=== PATIENT | male | born 1950 | race Caucasian/White ===

== ENCOUNTER 2021-12-27 08:14 | Day surgery (SDC) | payer MEDICARE, SELFPAY ==
[2021-12-21 13:50] VITALS: BMI 31.9
--- NOTE | 2021-12-26 11:48 | P.CONAN_ITS ---
HPI - Anesthesia Eval Consult details Narrative: 71yo M for Upper Endoscopy and Colonoscopy Cardiac visit 09/2021 with bradycardia. 30 day loop ordered. Report requested 12/26/[address] Crawford office ([phone]). [facility]LY [facility] Past Medical History Medical History Arthritis CAD (coronary artery disease) Fibromyalgia GERD (gastroesophageal reflux disease) Glaucoma Hiatal hernia HTN (hypertension) Surgical History Surgical History H/O colonoscopy History of esophagogastroduodenoscopy (EGD) History of trabeculectomy Hx of cataract extraction Hx of cholecystectomy Hx of cystoscopy Hx of hand surgery Hx of hand surgery Hx of transurethral resection of prostate Social History Social History Patient Tobacco Use Status: Current everyday Tobacco user Tobacco use type: Cigar Use of substances other than those prescribed or required for medical reasons: No Are you DNR?: No Advance Directives: No Advance Directives Information Provided: Yes Meds Allergies Allergy/AdvReac Type Severity Reaction Status Date / Time oxycodone [Oxycodone] Allergy Mild ITCHING Verified 12/27/21 08:53 Fbbzgin-LQF-KeI Reductase Allergy Unknown Unknown Verified 12/21/21 13:44 Inhibitor Home Medications Medication Instructions Recorded Confirmed Last Taken Type aspirin 81 mg tablet,delayed 81 mg PO DAILY 12/21/21 12/27/21 12/25/21 History release cholecalciferol (vitamin D3) 25 25 mcg PO DAILY 12/21/21 12/21/21 Unknown History mcg (1,000 unit) capsule (Vitamin D3) duloxetine 30 mg capsule,delayed 1 cap PO DAILY 12/21/21 12/21/21 Unknown History release hydrochlorothiazide 12.5 mg capsule 1 cap PO DAILY 12/21/21 12/21/21 Unknown History latanoprost 0.005 % eye drops 1 drp ophthalmic (eye) BEDTIME 12/21/21 12/21/21 Unknown History lisinopril 40 mg tablet 1 tab PO DAILY 12/21/21 12/21/21 Unknown History magnesium oxide 400 mg PO DAILY 12/21/21 12/21/21 Unknown History metoprolol succinate 25 mg 1 tab PO DAILY 12/21/21 12/21/21 Unknown History tablet,extended release 24 hr verapamil 120 mg tablet,extended 1 tab PO QPM 12/21/21 12/21/21 Unknown History release Exam Exam Date and Time: December 26, 2021 1148 Height,Weight and Vital Signs: Height 5 ft 5 in Weight 87.09 kg Narrative Narrative: EKG 09/2021 SB @ 45 otherwise nml ECHO 2019 LV size is normal LV wall thickness is mildly increased LV systolic function is normal LVEF 60-65% No definite RWMA LV filling pressure are indeterminate LA is mildly to moderately dilated RV is normal in size and function Assessment and Plan Assessment Anesthesia Assessment: Chart Reviewed
[2021-12-27 09:09] VITALS: BMI 31.6
[2021-12-27 09:15] VITALS: BP 154/70; PULSE 56; RESP 16; TEMP 36.6; O2SAT 99
[2021-12-27] MEDS: Lactated Ringers 1,000 ML 100 ML IVCONT (09:19)
--- NOTE | 2021-12-27 09:55 | HO.ANESPROP2 ---
PENDING SALE TO [facility] Past Medical History Medical History Arthritis CAD (coronary artery disease) Fibromyalgia GERD (gastroesophageal reflux disease) Glaucoma Hiatal hernia HTN (hypertension) Family History Family history of problems with anesthesia: No Surgical History Surgical History H/O colonoscopy History of esophagogastroduodenoscopy (EGD) History of trabeculectomy Hx of cataract extraction Hx of cholecystectomy Hx of cystoscopy Hx of hand surgery Hx of hand surgery Hx of transurethral resection of prostate Social History Social History Patient Tobacco Use Status: Current everyday Tobacco user Tobacco use type: Cigar Use of substances other than those prescribed or required for medical reasons: No Are you DNR?: No Advance Directives: No Advance Directives Information Provided: Yes Meds Allergies Allergy/AdvReac Type Severity Reaction Status Date / Time oxycodone [Oxycodone] Allergy Mild ITCHING Verified 12/27/21 08:53 Wvpqkpt-KEX-HwY Reductase Allergy Unknown Unknown Verified 12/21/21 13:44 Inhibitor Active Medications: Current Medications Lactated Ringer's (Lr) 1,000 mls @ 100 mls/hr IVCONT .Q10H JOSE Last Admin: 12/27/21 09:19 Dose: 100 mls/hr Sodium Biphosphate/Sodium Phosphate (Sodium Phosphate,Asotin-Dibasic 133 Ml Enema) 133 ml MS ONCE PRN PRN Reason: Poor Colonoscopy Prep Results Home Medications Medication Instructions Recorded Confirmed Last Taken Type aspirin 81 mg tablet,delayed 81 mg PO DAILY 12/21/21 12/27/21 12/25/21 History release cholecalciferol (vitamin D3) 25 25 mcg PO DAILY 12/21/21 12/21/21 Unknown History mcg (1,000 unit) capsule (Vitamin D3) duloxetine 30 mg capsule,delayed 1 cap PO DAILY 12/21/21 12/21/21 Unknown History release hydrochlorothiazide 12.5 mg capsule 1 cap PO DAILY 12/21/21 12/21/21 Unknown History latanoprost 0.005 % eye drops 1 drp ophthalmic (eye) BEDTIME 12/21/21 12/21/21 Unknown History lisinopril 40 mg tablet 1 tab PO DAILY 12/21/21 12/21/21 Unknown History magnesium oxide 400 mg PO DAILY 12/21/21 12/21/21 Unknown History metoprolol succinate 25 mg 1 tab PO DAILY 12/21/21 12/21/21 Unknown History tablet,extended release 24 hr verapamil 120 mg tablet,extended 1 tab PO QPM 12/21/21 12/21/21 Unknown History release Exam Exam Date and Time: December 27, [id number] Height,Weight and Vital Signs: Height 5 ft 5 in Weight 86.183 kg Last Vital Signs Temp 98 F 12/27/21 09:15 Pulse 56 12/27/21 09:15 Resp 16 12/27/21 09:15 BP 154/70 H 12/27/21 09:15 Pulse Ox 99 12/27/21 09:15 O2 Del Method 12/27/21 09:15 Airway Mallampati Class: I TM Dist: >3cm Neck ROM: Full Loose/Missing/Broken Teeth: No Heart: rrr Lungs: clear Assessment and Plan Final Anesthetic Review Family History of Problems with Anesthesia: No NPO: Yes ASA Class: III Final Preanesthetic Review: No Changes in Pt Med Stat and Meds/Allgs Chart Reviewed Patient Risk: Intermediate Procedure Risk: Low Anesthetic Plan Anesthetic Plan: MAC: Disposition: Standard PACU
[2021-12-27 11:03] VITALS: BP 107/72; PULSE 60; RESP 20; TEMP 37.3; O2SAT 96
--- NOTE | 2021-12-27 11:07 | P.BOP_ITS ---
Brief Operative Note Date of Service: 12/27/21 Pre-op diagnosis: Nino's, Screening Post-op diagnosis: other (Hiatal hernia, reflux esophagitis, Diverticulosis) Procedure: EGD with biopsies, Colonoscopy to the cecum Surgeon: Waldo Bolanos Anesthesia: MAC Was an Public Administration Professor used for this Procedure?: No Estimated blood loss (mL): 2.0 Pathology: other (A. EG Junction at 35cm) Condition: stable Disposition: PACU
[2021-12-27 11:18] VITALS: BP 131/71; PULSE 46; RESP 18; TEMP 36.7; O2SAT 97
--- NOTE | 2021-12-27 13:36 | OP_ITS ---
SURGEON: Waldo Bolanos MD INDICATIONS: The patient presents for evaluation of gastroesophageal reflux and Nino s esophagus, as well as colorectal cancer screening and some constipation. Full consent has been obtained from him for this, including risks of bleeding and perforation. PREOPERATIVE DIAGNOSIS: POSTOPERATIVE DIAGNOSIS: PROCEDURE PERFORMED: Esophagogastroduodenoscopy with biopsies, and colonoscopy to cecum. ESTIMATED BLOOD LOSS: COMPLICATIONS: ANESTHESIA: Monitored anesthesia care. ASSISTANTS: SPECIMENS: PREOPERATIVE DIAGNOSES: Gastroesophageal reflux, Nino's esophagus, constipation, and colorectal cancer screening. POSTOPERATIVE DIAGNOSES: Gastroesophageal reflux, Nino's esophagus, constipation, and colorectal cancer screening, hiatal hernia, reflux esophagitis, diverticulosis, and internal hemorrhoids. DESCRIPTION OF PROCEDURE: The patient was placed in the left lateral decubitus position. The Olympus video gastroscope was passed in the posterior oropharynx and upper esophagus under direct vision. The scope was passed slowly into the distal esophagus. The gastroesophageal junction appeared at 35 cm. This area was notable for some reflux esophagitis with linear erosions and some irregularity consistent with small, less than 1 cm, areas of probable Nino's mucosa. There was no mass or ulceration. The scope entered into the stomach. There was a cdobj-ed-jejzccbs sized hiatal hernia. The scope was advanced to pylorus and the duodenum was cannulated to the descending portion. The duodenum including the bulb appeared normal without mass or ulceration. The scope was withdrawn back from the stomach. The gastric antrum and body appeared normal with good peristalsis. The scope was retroflexed visualizing the proximal stomach carefully, which appeared normal, without any sign of mass or ulceration. The scope was straightened and withdrawn back into the esophagus. Biopsies were obtained at the EG junction at 35 cm. Proximal to this, the esophageal mucosa appeared normal. Scope was withdrawn from the patient. He was turned around for the colonoscopy. The digital rectal exam revealed no abnormalities. The Olympus video pediatric colonoscope was entered into the rectum and advanced easily to the cecum. Once in the cecum, I did identify normal-appearing cecal pouch with appendiceal orifice and a normal-appearing ileocecal valve. The entire cecum and ileocecal valve were well visualized and appeared normal. There was transillumination of light deep in the right lower quadrant. The scope was slowly withdrawn assessing all mucosal surfaces carefully. Preparation was excellent. I did not visualize any sign of polyps, colitis, or angiodysplasia. There was a moderate amount of diverticulosis in the sigmoid colon. In the rectum, scope was retroflexed visualizing small internal hemorrhoids, but no other pathology. The rectal mucosa appeared normal. The scope was straightened and withdrawn from the patient. He tolerated the procedure well and was returned to recovery area in stable condition. IMPRESSION: 1. Hiatal hernia, reflux esophagitis, history of Nino's esophagus. 2. Diverticulosis. 3. Internal hemorrhoids. PLAN: The results of the pathology will be checked. If there is evidence of Nino's mucosa, I would recommend a repeat upper endoscopy in 3 years. Given the findings, I shall start him on omeprazole 20 mg daily. He was advised to resume his aspirin tomorrow. I do not think he will need any further screening colonoscopies given the negative exam and his age. This has been discussed with his . MD INOCENTE Cintron/ALANA / [id number]
== END 2021-12-27 10:40 | disposition home or self-care (01) ==
PROVIDERS: PCP Internal Medicine; Visit Provider Internal Medicine
PROC: (CPT 43239; principal; 2021-12-27 09:30)
DX: Z12.11 Encounter for screening for malignant neoplasm of colon (principal); K57.30 Diverticulosis of large intestine without perforation or abscess without bleeding; K64.8 Other hemorrhoids; K59.00 Constipation, unspecified; K22.70 Barrett's esophagus without dysplasia; K21.00 Gastro-esophageal reflux disease with esophagitis, without bleeding; K44.9 Diaphragmatic hernia without obstruction or gangrene; I10 Essential (primary) hypertension; I25.10 Atherosclerotic heart disease of native coronary artery without angina pectoris; Z98.61 Coronary angioplasty status; M79.7 Fibromyalgia; H40.9 Unspecified glaucoma; F17.290 Nicotine dependence, other tobacco product, uncomplicated; Z79.82 Long term (current) use of aspirin; Z79.899 Other long term (current) drug therapy
CPT/HCPCS: 43239; G0121; 88305

== ENCOUNTER 2023-06-05 14:43 | Outpatient (REF) | payer MEDICARE, SELFPAY ==
--- NOTE | ~2023-06-05 | US_ITS ---
EXAMINATION: Noninvasive assessment of the arteries of both lower extremities to include a PVR exam complete (3+ levels), bilateral including segmental pressures. Sam Yoon MD CLINICAL INFORMATION: Peripheral vascular disease COMPARISON: None TECHNIQUE: The ankle/brachial indices of the distal posterior tibial and the dorsalis pedis arteries were obtained of the lower extremity arterial system bilaterally; along with segmental pressures and pulse volume recordings at the ankle, calf and above the knee levels. The study was performed at rest. FINDINGS: RIGHT LEG 1. THE RIGHT ANKLE-BRACHIAL INDEX IS: 0.92 (higher of the DP/PT) >0.97-1.25 = normal - no significant arterial disease 0.75-0.96 = mild peripheral arterial disease 0.5-0.74 = moderate peripheral arterial disease <0.50 = severe peripheral arterial disease <0.30 = critical arterial disease 2. SEGMENTAL PRESSURES: Thigh: 127 Below knee: 135 Ankle: PT 119 DP 122 3. PVR WAVEFORMS: Thigh: Minimally dampened Below knee: Normal Ankle: Moderately dampened LEFT LE. THE LEFT ANKLE-BRACHIAL INDEX IS: 0.84 (higher of the DP/PT) >0.97-1.25 = normal - no significant arterial disease 0.75-0.96 = mild peripheral arterial disease 0.5-0.74 = moderate peripheral arterial disease <0.50 = severe peripheral arterial disease <0.30 = critical arterial disease 2. SEGMENTAL PRESSURES: Thigh: 111 Below knee: 118 Ankle: PT 112 DP 107 3. PVR WAVEFORMS: Thigh: Minimally dampened Below knee: Normal Ankle: Mildly dampened US/US seg pressure LE mul level IMPRESSION: Right: Low-normal ankle-brachial index with dampened PVR waveforms as described above consistent with mild peripheral arterial disease Left: Mildly decreased ankle brachial index with dampened PVR waveforms as described above consistent with mild peripheral arterial disease
== END 2023-06-05 14:44 | disposition home or self-care (01) ==
LOC: HO.US 14:43
PROVIDERS: PCP Internal Medicine; Visit Provider Internal Medicine
DX: I73.9 Peripheral vascular disease, unspecified (principal)
CPT/HCPCS: 93923; 93925

== ENCOUNTER 2024-06-16 08:37 | Outpatient (REF) | payer MEDICARE, SELFPAY ==
--- NOTE | ~2024-06-16 | XR_ITS ---
EXAMINATION: XR LUMBAR SPINE. XR HIP, BILATERAL. CLINICAL INFORMATION: Low back pain. Bilateral hip pain. COMPARISON: None. TECHNIQUE: 3 views of the lumbar spine. AP and frog-lateral views of each hip. FINDINGS: Lumbar spine: Normal alignment and lumbar lordosis with no fracture. There is mild multilevel degenerative disc disease. Anterior bridging osteophytes at the thoracolumbar junction. Extensive atherosclerotic calcifications of the abdominal aorta. Bilateral hips: Mild right greater than left hip osteoarthritis. No fracture or malalignment. XR/XR lumbar spine 2-3V IMPRESSION: 1. Mild multilevel degenerative disc disease of the lumbar spine. Normal alignment. No fracture. 2. Mild bilateral hip osteoarthritis. Electronically signed by: Salbador Bee MD 06/16/2024 03:19 PM CLAIR MCELROY
--- NOTE | ~2024-06-16 | XR_ITS ---
EXAMINATION: XR LUMBAR SPINE. XR HIP, BILATERAL. CLINICAL INFORMATION: Low back pain. Bilateral hip pain. COMPARISON: None. TECHNIQUE: 3 views of the lumbar spine. AP and frog-lateral views of each hip. FINDINGS: Lumbar spine: Normal alignment and lumbar lordosis with no fracture. There is mild multilevel degenerative disc disease. Anterior bridging osteophytes at the thoracolumbar junction. Extensive atherosclerotic calcifications of the abdominal aorta. Bilateral hips: Mild right greater than left hip osteoarthritis. No fracture or malalignment. XR/XR hips JIMMY min 3V IMPRESSION: 1. Mild multilevel degenerative disc disease of the lumbar spine. Normal alignment. No fracture. 2. Mild bilateral hip osteoarthritis. Electronically signed by: Salbador Bee MD 06/16/2024 03:19 PM CLAIR MCELROY
== END 2024-06-16 08:38 | disposition home or self-care (01) ==
LOC: HO.XRAY 08:37
PROVIDERS: PCP Internal Medicine; Visit Provider Internal Medicine
DX: M54.42 Lumbago with sciatica, left side (principal); M54.41 Lumbago with sciatica, right side; G89.29 Other chronic pain; M25.551 Pain in right hip
CPT/HCPCS: 72100; 73522

== ENCOUNTER 2025-05-05 09:40 | Outpatient (AMB) | payer MEDICARE, SELFPAY ==
--- NOTE | 2025-05-05 09:41 | A.OFFVIS_ITS ---
Intake Visit Reasons: Gross Hematuria Intake Note: patient presents today for: new pt hematuria urology medications: none blood thinners: none smoker: yes Consumer Loan Underwriter Required: No Accompanied by: Self / Same As Patient Allergies clopidogrel (From Plavix) Allergy (Mild, Verified 05/05/25 11:05) intolerance evolocumab Allergy (Mild, Verified 05/05/25 11:05) Rash oxycodone (Oxycodone) Allergy (Mild, Verified 05/05/25 09:42) ITCHING ezetimibe Allergy (Unknown, Verified 05/05/25 11:05) hypersensitivity Japtrmg-LQB-LhE Reductase Inhibitor Allergy (Unknown, Verified 05/05/25 09:42) Unknown alirocumab Allergy (Verified 05/05/25 11:05) hypersensitivity gemfibrozil Allergy (Verified 05/05/25 11:05) myalgia nifedipine (From Nifedical XL) Allergy (Verified 05/05/25 11:05) myalgia HPI Comments Details: Jimi is a very pleasant male. He is a patient of Dr. Bateman. He is seen for the following urologic conditions - intermittent gross hematuria Background of anticoagulation for cardiac related issues Every 2 months notices 2-3 days of intermittent gross hematuria bleeding Is not quite sure if this is related to activity Prior TURP procedures performed at [facility] Has upcoming CT urogram Would like bladder to be examined for causes of hematuria Has had bad experiences with office based cystoscopy Plan operative cystoscopy with possible biopsy and/or fulguration [facility] Medical History Arthritis CAD (coronary artery disease) Fibromyalgia GERD (gastroesophageal reflux disease) Glaucoma Hiatal hernia HTN (hypertension) Surgical History H/O colonoscopy History of esophagogastroduodenoscopy (EGD) History of trabeculectomy Hx of cataract extraction Hx of cholecystectomy Hx of cystoscopy Hx of hand surgery Hx of hand surgery Hx of transurethral resection of prostate Social History Patient Tobacco Use Status: Current everyday Tobacco user Tobacco use type: Cigar Review of Systems Const Denies chills and Denies fever(s) Card Reports no additional complaints and Denies syncope Resp Denies cough GI Denies abdominal pain and Denies heartburn Reports as per HPI and Denies change in libido Neuro Denies syncope Psych Denies change in libido Endo Denies change in libido Physical Exam Const General: cooperative, healthy appearing, comfortable and no acute distress Orientation/consciousness: patient oriented x3 HEENT Face and sinus: Yes normal facial exam Mouth: moist mucous membranes Neck Neck: Yes normal visual inspection, Yes full ROM and Yes trachea midline Chest Chest palpation & inspection: normal inspection of the chest Resp Effort & Inspection: normal respiratory effort, able to speak in complete sentences and no respiratory distress GI Inspection: Yes normal to inspection Back/Spine/Pelvis Cervical Spine: normal cervical lordosis Thoracic/Lumbar Spine: thoracic and lumbar spine normal to inspection Skin General skin exam: no rashes or lesions noted Neuro General: patient oriented x3, gait normal, tone normal and moves all extremities Extrem General: Yes normal to inspection and Yes capillary refill normal Results AMB Urinalysis, Automated UA Leukoctes 0 Sebastian/uL Last Edit by TANYA Romero on 05/05/25 09:51 UA Nitrite Last Edit by TANYA Romero on 05/05/25 09:51 UA Urobilinogen 0.2 mg/dL Last Edit by TANYA Rmoero on 05/05/25 09:5 1 UA Protein 0 mg/dL Last Edit by TANYA Romero on 05/05/25 09:51 UA pH 6.0 Last Edit by TANYA Romero on 05/05/25 09:51 UA Blood 0 Deandre/uL Last Edit by TANYA Romero on 05/05/25 09:51 UA Specific Melbeta 1.015 Last Edit by TANYA Romero on 05/05/25 09: 51 UA Ketone Last Edit by TANYA Romero on 05/05/25 09:51 UA Bilirubin 0 mg/dL Last Edit by TANYA Romero on 05/05/25 09:51 UA Glucose 0 mg/dL Last Edit by TANYA Romero on 05/05/25 09:51 Results Reviewed Results Reviewed: Laboratory Last Values Urine pH (Auto) 6.0 05/05/25 09:50 Specific Melbeta (Auto) 1.015 05/05/25 09:50 Urine Protein (Auto) 0 mg/dL 05/05/25 09:50 Glucose (UA)(Auto) 0 mg/dL 05/05/25 09:50 Urine Blood (Auto) 0 Denadre/uL 05/05/25 09:50 Urine Bilirubin (Auto) 0 mg/dL 05/05/25 09:50 Urine Urobilinogen (Auto) 0.2 mg/dL 05/05/25 09:50 Leukocyte Esterase (Auto) 0 Sebastian/uL 05/05/25 09:50 Assessment & Plan Assessment & Plan (1) Intermittent gross hematuria: Code(s): R31.0 - Gross hematuria Category: Medical Plan Risks, benefits and alternatives to therapy were discussed. These include but are not limited to infection, bleeding, damage to local organs and tissues, need for further interventions. Anesthetic risks regarding cardiac arrhythmia, blood clots, and potential mortality were discussed. The patient understands the typical recovery time and the outpatient nature of the procedure. After consideration of these risks the patient gives full informed consent and they wish to move ahead with the procedure. - cystoscopy with potential bladder biopsy and fulguration Orders: Orders AMB Urinalysis Automated Today Z13.9 - Encounter for screening, unspecified Patient Instructions: This note is constructed using voice recognition software. While every effort has been made to ensure accuracy hogshead weigher errors may have been included. Imaging studies, laboratory and physical exam results were discussed and reviewed in detail. No major barriers to patient understanding were identified. An opportunity to ask questions regarding the treatment plan was provided. All questions were answered. The patient expressed understanding and agreement with the above treatment plan. The patient is aware they should contact our office by phone for worsening of their current condition or the appearance of new urologic symptoms. Compliance is encouraged with any medications and followup testing that is ordered. It is a privilege to participate in the urologic care of your patient. If you have any questions or concerns regarding treatment for the above conditions, or other urologic issues, please do not hesitate to contact me. The office telephone contact is [phone]. Sincerely, Dr Arsalan Birch MD, ARNAUD [facility] - Urology Compassionate Specialist Care for the Genitourinary System Coding Level of Care Code New Pt Level 4 (15280) Diagnoses Intermittent gross hematuria R31.0
--- OUTSIDE RECORDS SUMMARY | 2025-05-05 11:17 | XMS_ITS | Patient Health Record ---
[facility] Address [address] [place] [address] Care Team Providers Care Dbas Name Role Phone Raymon Bateman MD Primary Care Provider Adam Robertson Unavailable [phone] Allergies Allergen (clinical drug ingredient) Drug/Non Drug Allergy documented on EMR Reaction Allergy Type Onset Date Status oxycodone Oxycodone HCl hives Drug Allergy Act zeeshan Reason For Referral No Information Medications Medication SIG (Take, Route, Frequency, Duration) Notes Start Date End Date Status Atenolol 25 MG 1 tablet Orally Once a day Active hydroCHLOROthiazide 12.5 MG 1 capsule Or ally Once a day Active Magnesium 400 MG Orally Act zeeshan DULoxetine HCl 20 MG 1 capsule Orally Tw ice a day Active Omeprazole 20 MG 1 capsule Orally Onc e a day Active Latanoprost 0.005 % 1 drop into affected eye in the evening Ophthalmic Once a day Active amLODIPine Besylate 5 MG 1 tablet Orally Once a day Active Vitamin D3 1000 UNIT 1 capsule Orally On ce a day Active Aspirin 81 MG 1 tablet Orally Once a day Active Lisinopril 40 MG 1 tablet Orally Once a day Active Plan Of Treatment Pending Test Test Name Order Date X ray : Foot, left 2V 02/11/2014 Insurance Providers Payer Name Payer Address Payer Phone Subscriber Number Group Number Insured Name Patient Relationship to Insured Coverage Start Date Coverage End Date [employer] Preferred [address] [place] [id number] [phone] [id number] Jimi Welch Self - patient is the insured Medical (General) History Medical History History ICD Code Arthritis Back,Hip,and Knee pain Broken bones Cholesterol Cataracts Fibromyalgia Gall bladder problems Glaucoma Hiatal hernia High blood pressure Osteoporosis Poor circulation Reflux Measles Mumps Chicken pox Surgical History Surgery Date(Month/Year) Gallbladder Stent implant Cateract Glucoma Carpal tunnel Mo
--- OUTSIDE RECORDS SUMMARY | 2025-05-05 11:17 | XMS_ITS | Patient Health Record ---
Author Organization [facility] Address [address] [place] [address] Care Team Providers Care Storage And Backup Administrator Name Role Phone Raymon Bateman MD Primary Care Provider Waldo Ma Unavailable [phone] Allergies Allergen (clinical drug ingredient) Drug/Non Drug Allergy documented on EMR Reaction Allergy Type Onset Date Status alirocumab Praluent Unknown Drug Allergy Active clopidogrel Plavix Unknown Drug Allergy Activ e oxycodone OxyContin Unknown Drug Allergy Active Nifedical XL Unknown Drug Allergy Acti ve gemfibrozil Gemfibrozil Unknown Drug Allergy Act zeeshan Substance with 7-hrxrtfa-8-methylgluta ryl-coenzyme A reductase inhibitor mechanism of action (substance) Statins Unknown Drug Allergy Active ezetimibe Ezetimibe Unknown Drug Allergy Active Repatha Pushtronex System Unknown Drug Allergy Active Reason For Referral No Information Medications Medication SIG (Take, Route, Frequency, Duration) Notes Start Date End Date Status DULoxetine HCl 30 MG 1 capsule Orally Once a day Fibromyalgia Active Chlorthalidone 25 MG 1 tablet in the morning with food Orally; Duration: 30 day(s) Active Metoprolol Tartrate 25 MG 1 tablet with food Orally once a day Active Xarelto 20 MG 1 tablet with food Orally Once a day; Duration: 30 day(s) Active Verapamil HCl ER 240 MG 1 tablet Orally PM Active Toprol XL 25 MG 1 tablet Orally Once a day; Duration: 30 day(s) Active Allergy Active Lisinopril 40 MG 1 tablet Orally Once a day Active Clopidogrel Bisulfate 75 MG 1 tablet Orally Once a day Not-Taking Potassium Chloride 10 MEQ 1 capsule with food Orally Twice a day; Duration: 30 day(s) Active Omeprazole 20 MG TAKE 1 CAPSULE BY MOUTH EVERY DAY IN THE MORNING; Duration: 90 Active Stool Softener Unkno wn Latanoprost 0.005 % 1 drop into affected eye in the evening Ophthalmic pm Active Nitroglycerin Not-Ta fernando Magnesium 400 MG 1 capsule with a meal Orally pm Active Vitamin D 25 MCG (1000 UT) 1 tablet Orally pm Active Omeprazole 20 MG 1 capsule Orally Once every morning; Duration: 90 days 11/27/2024 Active Immunizations Vaccine Route Administration Date Status Comme nts Influenza Unknown 08/04/2020 Administered Influenza Unknown 05/07/2023 Administered Problems Problem Type SNOMED Code ICD Code Onset Dates Problem Status W/U Status Risk Notes Problem Screening for malignant neoplasm of colon (612712957) Encounter for screening for malignant neoplasm of colon (Z12.11) Active confirmed Problem Constipation (70241709) Constipation, unspecified (K59.00) Active confirmed Problem Gastroesophageal reflux disease without esophagitis (002612423) Gastroesophageal reflux disease without esophagitis (K21.9) Active confirmed Problem 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) Barretts esophagus without dysplasia (K22.70) Active confirmed Problem Hiatal hernia (47297904) Hiatal hernia (K44.9) Active confirmed Problem Gastroesophageal reflux disease (793871707) GERD (gastroesophageal reflux disease) (K21.9) Active confirmed Problem Nino esophagus (902917312) 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 Problem Diverticulosis of colon (647322850) Diverticulosis of colon (K57.30) Active confirmed Problem Nino's esophagus (063823857) 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) Active confirmed Problem Gastroesophageal reflux disease with esophagitis (disorder) (659465438) Gastroesophageal reflux disease with esophagitis, unspecified whether hemorrhage (K21.00) Active confirmed Encounters Encounter Location Date Provider Diagnosis [facility] [address] [facility] [address] [place] [phone] 11/27/2024 Waldo Bolanos Plan Of Treatment Future Test Test Name Order Date UPPER GI ENDOSCOPY 08/21/2013 COLONOSCOPY 08/21/2013 UPPER GI ENDOSCOPY 02/07/2017 UPPER GI ENDOSCOPY 11/28/2021 COLONOSCOPY 11/28/2021 Insurance Providers Payer Name Payer Address Payer Phone Subscriber Number Group Number Insured Name Patient Relationship to Insured Coverage Start Date Coverage End Date [employer] P[employer] [address] [place] [phone] [id number] ANDREW MONTES Self - patient is the insured Medical (General) History Medical History History ICD Code Colonoscopy and EGD --2003 and 10/2013--colon was normal, except for divertiiculosis and internal hemorrhoids; EGD with a small HH GERD/Nino's--EGD in --small HH, small area of Nino's--no dysplasia; no esophagitis; EGD in 04/2017 with the HH, but no Nino's tissue seen Coronary artery disease-s/p 1 stent 2002 --no problems since HTN Denies OR,DM,CVA,Lung disease,renal dise ase Glaucoma Fibromyalgia Arthritis Hematuria-saw a urologist--- will be seeing Dr. Bush, III, in 2020 for a cystoscopy CAD-1 stent placed in 07/2019 --had to stop blood thinners in December, due to hematuria--stent occluded and put a new stent in 01/2020---had an ETT in 05/2020 that showed an arrhythmia--?Vtach/VF--they recommended a defibrillator if the medical therapy didn't control things. He did not require a defibrillator. Upper endoscopy in December revealed some esophagitis, small to moderate-sized hiatal hernia, and a tiny area of Nino's esophagus without dysplasia Screening colonoscopy in December of 2021 Surgical History Surgery Date(Month/Year) CCY Eye surgery-for cataracts and glaucoma Dupuytrenne's contractures bilaterally Carpal tunnel--Bilateral Transurethral prostate surgery 11/2016
== END 2025-05-05 10:33 | disposition home or self-care (01) ==
LOC: HO.HUSH 09:41
PROVIDERS: PCP Internal Medicine; Visit Provider Urology
DX: Z13.9 Encounter for screening, unspecified (principal); R31.0 Gross hematuria
CPT/HCPCS: 99204

== ENCOUNTER → 2025-05-05 09:40 | Outpatient (BNVA) | payer MEDICARE, SELFPAY | PROVIDERS: PCP Internal Medicine; Visit Provider Urology | DX: R31.0 Gross hematuria (principal); Z13.9 Encounter for screening, unspecified | CPT/HCPCS: 81003; 99202 ==

== ENCOUNTER 2025-06-04 07:52 | Outpatient (REF) | payer MEDICARE, SELFPAY ==
--- NOTE | ~2025-06-04 | CT_ITS ---
EXAMINATION: CT ABDOMEN AND PELVIS WITHOUT AND WITH CONTRAST CLINICAL INFORMATION: Hematuria. Concerning stone versus renal mass. COMPARISON: None available. TECHNIQUE: Multidetector volumetric imaging was performed of the abdomen and pelvis before and after the IV administration of 85 mL of Omnipaque 350 intravenous contrast. Split protocol. Sagittal and coronal reformatted images were obtained on the technologist's workstation. No reported immediate complications. This CT examination was performed using dose optimization techniques as appropriate, variously including the following: *Automated exposure control *Adjustment of mA and/or kV according to patient size (this includes techniques or standardized protocols for targeted exams where dose is matched to indication/reason for exam; i.e. extremities or head) *Use of iterative reconstruction technique DLP: 972 mGy-cm FINDINGS: LIVER, GALLBLADDER, AND BILIARY TREE: There are measures 16 cm. Decreased enhancement pattern in relation to the spleen. 12 mm heterogeneous enhancing abnormality in the periphery of the right hepatic lobe no fully evaluated. Main portal veins and hepatic veins and intrahepatic portion of the IVC are patent. Status post cholecystectomy. No intrahepatic or extrahepatic biliary ductal dilatation. PANCREAS: No solid or cystic lesion. No main pancreatic ductal dilatation. No peripancreatic fluid collection. SPLEEN: 10 cm. No solid or cystic lesion. ADRENAL GLANDS: No nodular lesions. Soft tissue fullness, left adrenal gland. KIDNEYS AND URETERS: Right kidney: No hydronephrosis. No nephrolithiasis. Normal enhancement pattern throughout the renal parenchyma. Normal urinary excretion into nondilated urinary collecting system. Left kidney: No hydronephrosis. No nephrolithiasis. Normal enhancement pattern of the renal parenchyma. Normal urinary excretion into the nondilated urinary collecting system. BLADDER: Fluid-filled and later contrast-filled. No gross urinary bladder wall thickening. Both ureteral jets are present. GASTROINTESTINAL TRACT: Appendix is normal. Hiatal hernia, small to moderate size. Numerous diverticula, left hemicolon mostly in the sigmoid colon. Abundant stool, left hemicolon with a collapsed appearance of the descending colon and questionable intestinal wall thickening, sigmoid colon. Gas and fluid-filled prominent small bowel loops. No pneumatosis intestinalis. No intestinal wall thickening, terminal ileum. Apparent thickening of the gastric wall No ascites. No pneumoperitoneum. No peripheral enhancing fluid collection, peritoneal cavity. ABDOMINAL WALL: No gross umbilical hernia. LYMPH NODES: Nonspecific less than 1 cm mesenteric and retroperitoneal lymph nodes. VASCULAR: Throughout the coronary arteries, thoracic and abdominal aorta, iliac arteries and femoral arteries. No aneurysm or dissection, abdominal aorta. Prominent pampiniform plexus, right greater than the left side. Mixed plaques in the mesenteric arteries and the main renal arteries. Calcified plaques in the splenic artery. PELVIC VISCERA: Prostate gland measures 5 cm in maximum dimension. OSSEOUS STRUCTURES: Continued syndesmophyte formation throughout the anterior lower thoracic spine from T6 to T12 L1 with incomplete ankylosis anteriorly. Syndesmophyte formation and marginal osteophyte formation at L1 to and small at L4-5 and L3-4 levels. Vacuum phenomenon at intervertebral disc L4-5. Facet joint hypertrophy at L5-S1 and L4-5 levels. Osteopenia versus osteoporosis. Subchondral cyst formation and sclerosis along the articular margins of the coxofemoral joints,) the left side. Sclerosis and the sacroiliac joints with vacuum phenomenon on the right side. No acute fracture. CT/CT abdomen pelvis wo/w IV con IMPRESSION: No hydronephrosis. No renal mass. Diverticular disease mostly the sigmoid colon. Hepatomegaly and likely and steatosis, mild. Probable flash hemangioma, right hepatic lobe. Coronary artery disease and atherosclerosis disease. 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 Probable mild enteritis. Fleischner guidelines were followed. Electronically signed by: Nick Brambila MD 06/04/2025 09:08 AM CLAIR MCELROY
--- OUTSIDE RECORDS SUMMARY | 2025-06-04 07:54 | XMS_ITS | Patient Health Record ---
Author Organization [facility] Address [address] [place] [address] Care Team Providers Care Bullet Slug Casting Machine Operator Name Role Phone Raymon Bateman MD Primary Care Provider Waldo Ma Unavailable [phone] Allergies Allergen (clinical drug ingredient) Drug/Non Drug Allergy documented on EMR Reaction Allergy Type Onset Date Status gemfibrozil Gemfibrozil Unknown Drug Allergy Act zeeshan Nifedical XL Unknown Drug Allergy Acti ve oxycodone OxyContin Unknown Drug Allergy Active clopidogrel Plavix Unknown Drug Allergy Activ e alirocumab Praluent Unknown Drug Allergy Active Repatha Pushtronex System Unknown Drug Allergy Active ezetimibe Ezetimibe Unknown Drug Allergy Active Substance with 7-jpicmsk-6-methylgluta ryl-coenzyme A reductase inhibitor mechanism of action (substance) Statins Unknown Drug Allergy Active Reason For Referral No Information Medications Medication SIG (Take, Route, Frequency, Duration) Notes Start Date End Date Status DULoxetine HCl 30 MG Capsule Delayed Release Particles 1 capsule Orally Once a day Fibromyalgia Active Chlorthalidone 25 MG Tablet 1 tablet in the morning with food Orally; Duration: 30 day(s) Active Metoprolol Tartrate 25 MG Tablet 1 tablet with food Orally once a day Active Xarelto 20 MG Tablet 1 tablet with food Orally Once a day; Duration: 30 day(s) Active Verapamil HCl ER 240 MG Tablet Extended Release 1 tablet Orally PM Active Toprol XL 25 MG Tablet Extended Release 24 Hour 1 tablet Orally Once a day; Duration: 30 day(s) Active Allergy Active Lisinopril 40 MG Tablet 1 tablet Orally Once a day Active Clopidogrel Bisulfate 75 MG Tablet 1 tablet Orally Once a day Not-Taking/PRN Potassium Chloride 10 MEQ Capsule Extended Release 1 capsule with food Orally Twice a day; Duration: 30 day(s) Active Omeprazole 20 MG Capsule Delayed Release TAKE 1 CAPSULE BY MOUTH EVERY DAY IN THE MORNING; Duration: 90 Active Stool Softener Unkno wn Latanoprost 0.005 % Solution 1 drop into affected eye in the evening Ophthalmic pm Active Nitroglycerin Not-Ta fernando/PRN Magnesium 400 MG Capsule 1 capsule with a meal Orally pm Active Vitamin D 25 MCG (1000 UT) Tablet 1 tablet Orally pm Active Omeprazole 20 MG Capsule Delayed Release 1 capsule Orally Once every morning; Duration: 90 days 11/27/2024 Active Immunizations Vaccine Route Administration Date Status Comme nts Influenza Unknown 08/04/2020 Administered Influenza Unknown 05/07/2023 Administered Social History Social History Additional Details Category Social Info Options Details Miscellaneous: Marital status: Occupation: Retired Section Notes: He has a daily cigar or pipe ; occasional beer He has a daily cigar or pipe ; occasional beer He has a daily cigar or pipe ; occasional beer He has a daily cigar or pipe ; occasional beer He has a daily cigar or pipe ; occasional beer Problems Problem Type SNOMED Code ICD Code Onset Dates Problem Status W/U Status Risk Notes Problem Screening for malignant neoplasm of colon (888697871) Encounter for screening for malignant neoplasm of colon (Z12.11) Active confirmed Problem Constipation (52632373) Constipation, unspecified (K59.00) Active confirmed Problem Gastroesophageal reflux disease without esophagitis (754796110) Gastroesophageal reflux disease without esophagitis (K21.9) Active confirmed Problem Nino's esophagus (068355161) Barretts esophagus without dysplasia (K22.70) Active confirmed Problem Hiatal hernia (84471659) Hiatal hernia (K44.9) Active confirmed Problem Gastroesophageal reflux disease (754945948) GERD (gastroesophageal reflux disease) (K21.9) Active confirmed Problem Nino esophagus (506351563) 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 Problem Diverticulosis of colon (202252366) Diverticulosis of colon (K57.30) Active confirmed Problem Nino's esophagus (893545255) 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) Active confirmed Problem Gastroesophageal reflux disease with esophagitis (disorder) (243413586) Gastroesophageal reflux disease with esophagitis, unspecified whether hemorrhage (K21.00) Active confirmed Encounters Encounter Location Date Provider Diagnosis [facility] [address] [place] [address] 11/27/2024 Waldo Bolanos Plan Of Treatment Future Test Test Name Order Date UPPER GI ENDOSCOPY 08/21/2013 COLONOSCOPY 08/21/2013 UPPER GI ENDOSCOPY 02/07/2017 UPPER GI ENDOSCOPY 11/28/2021 COLONOSCOPY 11/28/2021 Insurance Providers Payer Name Payer Address Payer Phone Subscriber Number Group Number Insured Name Patient Relationship to Insured Coverage Start Date Coverage End Date [employer] PREFERRED [address] [place] [phone] [id number] ANDREW MONTES Self - patient is the insured Medical (General) History Medical History History ICD Code Colonoscopy and EGD - and 10/2013--colon was normal, except for divertiiculosis and internal hemorrhoids; EGD with a small HH GERD/Nino's--EGD in --small HH, small area of Nino's--no dysplasia; no esophagitis; EGD in 04/2017 with the HH, but no Nino's tissue seen Coronary artery disease-s/p 1 stent 2002 --no problems since HTN Denies NH,DM,CVA,Lung disease,renal dise ase Glaucoma Fibromyalgia Arthritis Hematuria-saw [...]
--- OUTSIDE RECORDS SUMMARY | 2025-06-04 07:54 | XMS_ITS | Patient Health Record ---
Author Organization [facility] Address [address] [place] [address] Care Team Providers Care Tuck Pointer Helper Name Role Phone Raymon Bateman MD Primary Care Provider Adam Robertson Unavailable [phone] Allergies Allergen (clinical drug ingredient) Drug/Non Drug [...] Medicare Preferred [address] [place] [phone] [id number] Jimi Welch Self - patient is the insured Medical (General) History Medical History History ICD Code Arthritis Back,Hip,and Knee pain Broken bones Cholesterol Cataracts Fibromyalgia Gall bladder problems Glaucoma Hiatal hernia High blood pressure Osteoporosis Poor circulation Reflux Measles Mumps Chicken pox Surgical History Surgery Date(Month/Year) Gallbladder Stent implant Cateract Glucoma Carpal tunnel Mo
--- OUTSIDE RECORDS SUMMARY | 2025-06-04 07:54 | XMS_ITS | Encounter Summary ---
Author Organization [facility] Address [address] [place] [address] Phone Care Team Providers Care Material Disposition Inspector Name Role Phone Raymon Bateman MD Primary Care Provider [phone] Stepehn Fitzpatrick MD Unavailable [phone] Binh Crawford MD Unavailable [phone] Encounter Details Date Type Department Care Team (Late st Contact Info) Description 05/18/2025 Orders Only [facility] [address] [place] [address] Provider, MD Jena [address] [place], [place] [id number] Social History Tobacco Use Types Packs/Day Years Used Date Smoking Tobacco: Every Day Pipe Cigars Passive Smoke Exposure: Current Smokeless Tobacco: Never Comments:smokes with pipe (n icotine) started up again 4 months ago (06/05/2021) one or the other pipe/cigars Passive Exposure Comments: smokes cigarettes-pt has been exposed for 56 years Alcohol Use Standard Drinks/Week Comments Yes 3 (1 standard drink = 0.6 oz pur e alcohol) 1-2 drinks, 2-3 x week Education Answer Date Recorded Are you interested in more education? Not on alexandra e 11/09/2022 Are you concerned about learning? Not on file 11/09/2022 No 11/09/2022 No 11/09/2022 Digital Access Answer Date Recorded No 12/08/2022 No 12/08/2022 Reliable internet access at home? Not on file 12/08/2022 Device with a working camera? Not on file Intimate Partner Violence Answer Date R ecorded Denied Basic Needs Not on file 06/05/2024 In the past 12 months have y ou been in a relationship with a person who hurts, threatens, or tries to control you? No 06/05/2024 Worried food would run out Not on file 06/05 In the past 12 months have y ou been in a relationship with a person who hurts, threatens, or tries to control you? No 06/05/2024 Sex and Gender Information Value Date Recorded Sex Assigned at Not on file Legal Sex Male 10:04 PM EDT Gender Identity Not on file Sexual Orientation Not on file documented as of this encounter Plan of Treatment Upcoming Encounters Date Type Department Care Team (Late st Contact Info) Description 06/07/2025 8:30 AM EST Office Visit [facility] Internal Medicine [address] [place] [address] Raymon Bateman MD [address] [place] [address] documented as of this encounter Procedures Procedure Name Priority Date/Time Associated Diagnosis Comments OUTSIDE LAB Routine 05/18/2025 11:04 AM EST documented in this encounter Results * Outside Lab (Non-[facility]) (05/18/2025 11:04 AM EST) us Historical Provider LAB BLOOD BKR ORDERABLES Final Result documented in this encounter Visit Diagnoses Not on filedocumented in this encounter Additional Health Concerns Assessment Noted Time PHQ-2 Depression Total Score: 0 06/05/20 8:12 AM EST documented as of this encounter Care Teams Material Disposition Inspector Relationship Specialty Start Date End Date Raymon Bateman MD [address] [place] [address] [email or web address] PCP - General 04/30/17 Stephen Fitzpatrick MD [address] [place] [address] Ophthalmology 03/08/20 Binh Crawford MD [address] [place] [address] Cardiology 11/02/20 documented as of this encounter Additional Source Comments The information contained in this document represents components of the legal health record. It is not the complete legal health record.[facility]
--- OUTSIDE RECORDS SUMMARY | 2025-06-04 07:54 | XMS_ITS | Encounter Summary ---
Author Organization [facility] Address [address] [facility] [address] [place] [address] Phone Care Team Providers Care Lock Up Worker Name Role Phone Raymon Bateman MD Primary Care Provider [phone] Stephen Fitzpatrick MD Unavailable [phone] Binh Crafword MD Unavailable [phone] Reason for Visit * Reason Onset Date Comments Referral 03/22/2025 urology Encounter Details Date Type Department Care Team (Late st Contact Info) Description 03/22/2025 Telephone [facility] [address] [place], [place] [phone] Raymon Bateman MD [address] [place] [address] [email or web address] Referral (urology) Social History Tobacco Use Types Packs/Day Years [...] on file documented as of this encounter Progress Notes * Carlton Mckeon - 03/23/2025 9:25 AM EDT Patient scheduled for 04/05 at 8 am * Raymon Bateman MD - 03/22/2025 6:02 PM EDT He has not been seen for this by anyone and needs to be seen here first as he will not get in with Dr. Bagley for a while. * Yeny Santos RN - 03/22/2025 2:33 PM EDT Spoke to Elsa. States Jimi hasn't been seen for this by Dr Bateman. States he has had intermittent hematuria over the last month. Sometimes bright red, had seen a couple of clots. States he stopped taking his blood thinners (Xarelto) about 2-3 days ago, thinking this may help. She is unsure if it's improved his symptoms.States he is in [place] for the week, bear hunting. He did not takehis blood thinners with him. States he did not have lightheaded or dizziness. States she is unsure if he had any other urinary symptoms. States he asked me to make an appointment for him for when hegets back. Mentions, he also has a rash in his groin. He went to see the language interpreter and they said it was fungal, but that doesn't seem to be improving. Will review with PCP. * Carlton Mckeon - 03/22/2025 2:29 PM EDT Elsa patients , returning call. * Yeny Santos RN - 03/22/2025 2:19 PM EDT LVM for pt to call back. * Alexsandra Evans - 03/22/2025 2:02 PM EDT Pt's spouse called in to provide fax for Urology office. . FYI Central Support Chef De Froid (Please do not reply to this user; this inbox is not monitored.) Thank you. * Dejah Rueda - 03/22/2025 1:45 PM EDT Referral Request 1. Name of the office where the patient has been seen/requests to be seen:[facility] 2. Reason for referral/specialist appointment and the diagnosis code: blood in urine 2A. Have you seen this provider before for this same problem? YES/NO: no 2B. If this is a new problem, is your PCP aware of your symptoms? YES/NO: no 3. Date of appointment(s):na 4. Name of specialist provider: Dr.Alexander bagley 5. NPI number to enter for referral authorization (enter n/a if not available): na 6. Number of visits requested for referral: na 7. Fax number of specialist office to send referral authorization: na phone [phone] documented in this encounter Plan of Treatment Upcoming Encounters Date Type Department Care Team (Late st Contact Info) Description 06/07/2025 8:30 AM EST Office Visit [facility] Internal [facility] [address] [place] [address] Raymon Bateman MD [address] [place] [address] [email or web address] documented as of this encounter Visit Diagnoses Not on filedocumented in this encounter Additional Health Concerns Assessment Noted Time PHQ-2 Depression Total Score: 0 06/05/20 24 8:12 AM EST documented as of this encounter Care Teams Lock Up Worker Relationship Specialty Start Date End Date Raymon Bateman MD [address] [place] [address] [email or web address] PCP - General 04/30/17 Stephen Fitzpatrick MD [address] [place] [address] Ophthalmology 03/08/20 Binh Crawford MD [address] [place] [address] Cardiology 11/02/20 documented as of this encounter Additional Source Comments The information contained in this document represents components of the legal health record. It is not the complete legal health record.[facility]
--- OUTSIDE RECORDS SUMMARY | 2025-06-04 07:54 | XMS_ITS | Encounter Summary ---
Author Organization [facility] Address [address] [place] [address] Phone Care Team Providers Care Financial Services Rep Name Role Phone Raymon Bateman MD Primary Care Provider [phone] Stephen Fitzpatrick MD Unavailable [phone] Binh Crawford MD Unavailable [phone] Reason for Visit * Reason Comments Medication Refill Encounter Details Date Type Department Care Team (Late st Contact Info) Description 05/26/2025 Refill [facility] [address] [place] [address] Raymon Bateman MD [address] [place] [address] [email or web address] Medication Refill Social History Tobacco Use Types Packs/Day Years [...] you interested in more education? Not on alxeandra e 11/09/2022 Are you concerned about learning? [...] as of this encounter Progress Notes * Pita Gutierrez MA - 05/26/2025 11:03 AM EST Rx Care Gap Status - Instructions for Clinical Staff (prescriber discretion applies): > Mismatch review guide > N/a - No action needed Visit Info Last visit: 04/05/2025 Raymon Bateman MD - Internal Medicine [facility] > Requested f/u: Not specified Upcoming visit: 06/07/2025 Raymon Bateman MD - Internal Medicine [facility] ACTIONS TAKEN BY Pita Gutierrez MA - Sig/Pt Instructions matches med list. Vitamins, Minerals, Supplements, OTCs Rx Protocol - magnesium oxide Criteria met; renew for up to 12 months. Visit in the past 24 months: Yes documented in this encounter Plan of Treatment Upcoming Encounters Date Type Department Care Team (Late st Contact Info) Description 06/07/2025 8:30 AM EST Office Visit [facility] [address] [place] [address] Raymon Bateman MD [address] [place] [address] documented as of this encounter Visit Diagnoses Not on filedocumented in this encounter Additional Health Concerns Assessment Noted Time PHQ-2 Depression Total Score: 0 06/05/20 24 8:12 AM EST documented as of this encounter Care Teams Financial Services Rep Relationship Specialty Start Date End Date Raymon Bateman MD [address] [place] [address] PCP - General 04/30/17 Stephen Fitzpatrick MD [address] [place] [address] Ophthalmology 03/08/20 Binh Crawford MD [address] [place] [address] Cardiology 11/02/20 documented as of this encounter Additional Source Comments The information contained in this document represents components of the legal health record. It is not the complete legal health record.[facility]
--- OUTSIDE RECORDS SUMMARY | 2025-06-04 07:54 | XMS_ITS | Encounter Summary ---
Author Organization [facility] Address [address] [facility] [address] [place] [address] Phone Care Team Providers Care Blurb Writer Name Role Phone Raymon Bateman MD Primary Care Provider [phone] Stephen Fitzpatrick MD Unavailable [phone] Binh Crawford MD Unavailable [phone] Reason for Visit * Reason Onset Date Comments Labs 05/05/2025 Encounter Details Date Type Department Care Team (Late st Contact Info) Description 05/05/2025 Telephone [facility] Internal Medicine [address] [place] [address] Raymon Bateman MD [address] [place] [address] [email or web address] Social History Tobacco Use Types Packs/Day Years [...] as of this encounter Progress Notes * Raymon Bateman MD - 05/07/2025 7:22 PM EDT Noted. * Santosh El - 05/06/2025 8:03 AM EDT Spoke to patient and he will come here on Saturday to get labs done. He states he saw Dr. Birch yesterday who wants to wait until his scan to see what that shows before he moves forward with anything. Faxed to Dr. Birch's office for note. * Raymon Bateman MD - 05/05/2025 7:16 PM EDT Labs ordered find out where he wants them done. Find out if he has an appt with Dr. Birch yet. * Santosh El - 05/05/2025 2:18 PM EDT Received notification from [facility] scheduling that patient needs BUN, creatinine and GFR prior to CT scan on 06/04/25 (needs to be 30 days - last labs 04/30). I called over to see if the April labs would be acceptable as they are just over the 30 days but they stated they needed new ones drawn BMP pended for provider. documented in this encounter Plan of Treatment Upcoming Encounters Date Type Department Care Team (Late st Contact Info) Description 06/07/2025 8:30 AM EST Office Visit [facility] Internal Medicine [address] [place], [place] [phone] Raymon Bateman MD [address] [place] [address] [email or web address] documented as of this encounter Results * (ABNORMAL) Basic metabolic panel (05/11/2025 8:36 AM EDT) SODIUM 141 133 - 146 mmol/L [facility] CHLORIDE 101 96 - 108 mmol/L [facility] POTASSIUM 4.4 3.3 - 5.1 mmol/L [facility] CO2 28 21 - 35 mmol/L [facility] BUN 22(H) 6 - 19 mg/dL [facility] CREATININE 1.20 0.5 - 1.5 mg/dL [facility] GLUCOSE 113(H) 70 - 99 mg/dL [facility] CALCIUM 9.1 8.4 - 10.3 mg/dL [facility] EGFR 63 >59 mL/min/1.7 3m2 [facility] Comment:Estimated glomerular filtration rate calculated using the CKD-EPI refit equation. ANION GAP 16 10 - 20 mmol/L [facility] Blood 05/11/2025 8:36 AM EDT 05/11/2025 8:38 AM EDT us Raymon Bateman MD LAB BLOOD BKR ORDERABLES Una benavidez Result [facility] [address] [place] [address] documented in this encounter Visit Diagnoses Diagnosis Essential hypertension- Primary Unspecified essential hypertension documented in this encounter Additional Health Concerns Assessment Noted Time PHQ-2 Depression Total Score: 0 06/05/20 24 8:12 AM EST documented as of this encounter Care Teams Blurb Writer Relationship Specialty Start Date End Date Raymon Bateman MD [address] [place] [address] [email or web address] PCP - General 04/30/17 Stephen Fitzpatrick MD [address] [place] [id number] Ophthalmology 03/08/20 Binh Crawford MD [address] [place] [address] Cardiology 11/02/20 documented as of this encounter Additional Source Comments The information contained in this document represents components of the legal health record. It is not the complete legal health record.[facility]
--- OUTSIDE RECORDS SUMMARY | 2025-06-04 07:54 | XMS_ITS | Encounter Summary ---
Author Organization [facility] Address [address] [place] [address] Phone Care Team Providers Care Rn Staff Name Role Phone Raymon Bateman MD Primary Care Provider [phone] Binh Crawford MD Unavailable [phone] Stephen Fitzpatrick MD Unavailable [phone] Binh Crawford MD Unavailable [phone] Encounter Details Date Type Department Care Team (Latest Contact Info) Description 08/08/2017 Transcribe Orders [facility] [place] [address] [place] [address] Raymon Bateman MD [address] [place], [place] [phone] [email or web address] Essential hypertension, benign (Primary Dx) Social History Tobacco Use Types Packs/Day Years Used Date Smoking Tobacco: Never Assessed Sex and Gender Information Value Date Recorded Sex Assigned at Not on file Legal Sex Male 10:04 PM EDT Gender Identity Not on file Sexual Orientation Not on file documented as of this encounter Plan of Treatment Upcoming Encounters Date Type Department Care Team (Late st Contact Info) Description 06/07/2025 8:30 AM EST Office Visit [facility] Internal Medicine [address] [place] [address] Raymon Bateman MD [address] [place] [address] documented as of this encounter Results * PSA (screening) (08/08/2017 8:22 AM EST) PSA 2.04 0 - 4.00 ng/mL [facility] Blood 08/08/2017 8:22 AM EST 08/08/2017 8:26 AM EST us Raymon Bateman MD LAB BLOOD BKR ORDERABLES Una l Result [address] [address] documented in this encounter Visit Diagnoses Diagnosis Essential hypertension, benign- Primary documented in this encounter Care Teams Rn Staff Relationship Specialty Start Date End Date Raymon Bateman MD [address] [place] [address] PCP - General 04/30/17 Binh Crawford MD [address] [place] [address] Cardiology 09/17/19 11/01/20 Stephen Fitzpatrick MD [address] [place] [phone] Ophthalmology 03/08/20 Binh Crawford MD [address] [place] [address] Cardiology 11/02/20 documented as of this encounter Additional Source Comments The information contained in this document represents components of the legal health record. It is not the complete legal health record.[facility]
--- OUTSIDE RECORDS SUMMARY | 2025-06-04 07:55 | XMS_ITS | Clinical Summary ---
Author Organization [facility] Address [address] [facility] [address] [place] [phone] Phone Care Team Providers Care Net Application Architect Name Role Phone Raymon Bateman MD Primary Care Provider [phone] Stephen Fitzpatrick MD Unavailable [phone] Binh Crawford MD Unavailable [phone] Allergies Active Allergy Reactions Criticality Noted Date Comments Ezetimibe 05/05/2022 Other reaction(s): abdominal tenderness Gemfibrozil Myalgia 09/02/2017 Muscle spasms Nifedipine Myalgia 09/02/2017 Oxycodone Dermatitis 09/02/2017 Clopidogrel Other (See Comments) 10/20/2020 Trouble concentrating Alirocumab Other (See Comments) 09/17/2019 Chest pain and dyspnea and joint paion Evolocumab Rash Low 11/05/2019 Also caused chest pain dyspnea and hip pain Zxqmwyp-Aub-Rvm Reductase Inhibitors Myalgia 09/02/2017 Medications latanoprost (XALATAN) 0.005 % ophthalmic solution Place 1 drop into each eye every morning. Active cholecalciferol, vitamin D3, 25 mcg (1,000 unit) capsule Take 1,000 Units by mouth daily. Active verapamiL (CALAN-SR) 120 MG CR tablet Take 120 mg by mouth every morning. 08/22/19 21 Active Medication-Free Text Take 1-3 capsules by mouth daily. Shaklee herblax (stool softner) PRN Active chlorthalidone (HYGROTON) 25 MG tablet Take 25 mg by mouth every morning. 04/03/20 22 Active omeprazole (PRILOSEC) 20 MG capsule Take 20 mg by mouth every morning. 03/20/20 22 Active rivaroxaban (XARELTO) 20 mg Tab Take 20 mg by mouth every morning. 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 25 tablet 5 08/11/19 23 Active metoprolol succinate (TOPROL-XL) 25 MG 24 hr tabletIndication s:Essential hypertension TAKE 1/2 TABLET (12.5 MG TOTAL) BY MOUTH DAILY. INDICATIONS: DECREASE BY CARDIOLOGY DURING 08/21/22 OFFICE VISIT 45 tablet 3 08/05/19 25 Active lisinopril (PRINIVIL,ZESTRI L) 40 MG tabletIndication s:Essential hypertension TAKE 1 TABLET BY MOUTH EVERY DAY 90 tablet 3 08/05/19 25 Active COQ10, UBIQUINOL, ORAL Take 200 mg by mouth daily. Active ketoconazole 2 % cream APPLY TO AFFECTED AREA OF RASH IN GROIN TWICE DAILY FOR THREE WEEKS REPEAT NEEDED. 03/18/20 25 Active potassium chloride SA (KLOR-CON M10) 10 MEQ ER tabletIndication s:Hypokalemia Take 2 tablets (20 mEq total) by mouth 2 (two) times a day. 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 Dupuytren's contracture 09/06/2017 Essential hypertension 09/06/2017 Hyperlipidemia 09/06/2017 Impaired fasting glucose 09/06/2017 Mixed hyperlipidemia 09/06/2017 Vitamin D deficiency 09/06/2017 Presence of stent in coronar y artery in patient with coronary artery disease 01/12/2003 Overview (09/17/2019): new stent rca 08/03 Osteoarthritis Encounters Date Type Department Care Team Description 05/26/2025 Refill [facility] Internal Medicine [address] [facility] [place] [address] Raymon Bateman MD Medication Refill 05/18/2025 Orders Only [facility] Internal Medicine [address] [facility] [place] [address] ProviderJena MD 05/11/2025 8:37 AM EDT - 05/11/2025 11:59 PM EDT Hospital Encounter [facility] [address] [place] [address] Raymon Bateman MD Discharge Disposition: Home or Self Care 05/10/2025 Telephone [facility] Internal Medicine [address] [facility] [place] [address] Raymon Bateman MD 05/05/2025 Telephone [facility] Internal Medicine [address] [facility] [place] [address] Raymon Bateman MD Labs 04/30/2025 8:47 AM EDT - 04/30/2025 11:59 PM EDT Hospital Encounter [facility] [address] [facility] [place] [address] Raymon Bateman MD Discharge Disposition: Home or Self Care 04/14/2025 Refill [facility] Internal Medicine [address] [facility] [place] [address] Raymon Bateman MD Medication Refill 04/09/2025 Telephone [facility] Internal Medicine [address] [facility] [place] [address] Raymon Bateman MD Potassium Rx 04/05/2025 9:05 AM EDT - 04/05/2025 11:59 PM EDT Hospital Encounter [facility] [address] [facility] [place] [address] Raymon Bateman MD Discharge Disposition: Home or Self Care 04/05/2025 8:00 AM EDT Office Visit [facility] Internal Medicine [address] [place] [address] Raymon Bateman MD Impaired fasting blood sugar (Primary Dx); Gross hematuria; Need for prophylactic vaccination and inoculation against influenza; Arteriosclerotic cardiovascular disease; Presence of stent in coronary artery in patient with coronary artery disease; Muscle spasm; Dizziness; Hematuria, undiagnosed cause; Mixed hyperlipidemia 04/05/2025 Telephone [facility] Internal Medicine [address] [facility] [place] [address] abd/pelvis 03/22/2025 Telephone [facility] Internal Medicine [address] [place] [address] Raymon Bateman MD Cardiology Referral Request 03/22/[address] [address] Raymon Bateman MD Referral (urology) from Last 3 Months Immunizations Immunization Administration Dates Next Due COVID-19 (Pre-05/06) Pfizer Vaccine, mRNA, PF 11/10/2020,10/19/2020 INFLUENZA, SPLIT VIRUS, TRIVALENT PF 04/29/2015 INFLUENZA, SPLIT VIRUS, TRIV ALENT W/ PRESERVATIVE IM 08/04/2020,07/10/2012,06/14/2011,06/23 Influenza High-Dose Quadriva lent Preservative Free IM 07/19/2023,06/05/2021,05/10/2020 Influenza High-Dose Trivalen t Preservative Free IM 05/12/2019,05/14/2017,05/16/2016 Influenza trivalent preserva tive free intradermal 05/12/2013 Influenza, Unspecified Formulation 04/25/2018, Influenza, whole 04/18/2018,05/13/2014 Pneumococcal conjugate PCV13 09/04/2016 Pneumococcal conjugate PCV20 06/05/2024 Pneumococcal polysaccharide PPSV23 06/07/2014,,10/13/2006 Td (adult) 5 Lf Tetanus Toxo id, PF, Adsorbed 07/15/2003 Tdap 11/16/2013 Zoster unspecified formulation 11/04/2013 Family History Medical History Relation Comments Coronary artery disease Brother 1 Coronary artery disease Brother 2 Pacemaker Brother 2 Diabetes mellitus Father heart attack,d eceased at 49 Dementia Mother Hypertension Mother thryoid disease, kidney removed, at 92 Cancer Sister Dementia Sister Pancreatic cancer Sister Relation Status Comments Brother 1 Alive Brother 2 Alive aneurysm Daughter Alive Father (Age 49) mi at 39 Mother (Age 93) Sister Alive Son Alive Social History Tobacco Use Types Packs/Day Years [...] on file Sexual Orientation Not on file Last Filed Vital Signs Vital Sign Reading Time Taken Comments Blood Pressure 112/60 04/05/2025 7:49 AM EDT Pulse 48 04/05/2025 7:49 AM EDT Temperature 36.9 C (98.4 F) 04/05/2025 7:49 AM EDT Respiratory Rate 18 04/05/2025 7:49 AM EDT Oxygen Saturation 98% 04/05/2025 7:49 AM EDT Inhaled Oxygen Concentration - - Weight 89.9 kg (198 lb 3.2 oz) 04/05/2025 7:49 A M EDT Height 165.1 cm (5' 5 ) 04/05/2025 7:49 AM EDT Body Mass Index 32.98 04/05/2025 7:49 AM EDT Plan of Treatment Upcoming Encounters Date Type Department Care Team (Late st Contact Info) Description 06/07/2025 8:30 AM EST Office Visit [facility] Internal Medicine [address] [place] [address] Raymon Bateman MD [address] [place] [address] [email or web address] Health Maintenance Due Date Last Done Comments ZOSTER VACCINES (1 of 2) 1998 11/04/2013 Adult Td,Tdap Booster 11/17/2023 11/16/2013, 004 RSV VACCINE (1 - 1-dose 75+ series) 12/24/2023 INFLUENZA VACCINE (#1) 2025 , 06/05/2021, 08/04/2020, Additional history exists COVID-19 VACCINE (2024- season) 2025 11/10/2020, 10/19/2020 DEPRESSION SCREENING 06/05/2025 06/05/2024 BLOOD PRESSURE 10/03/2025 04/05/2025 LIPID PANEL 04/05/2026 04/05/2025, 09/12, 05/12/2024, Additional history exists SMOKING Hx and SMOKELESS TOBACCO SCREENING 04/05/2026 04/05/2025 CREATININE LEVEL 05/11/2026 05/11/2025, , 04/05/2025, Additional history exists POTASSIUM LEVEL 05/11/2026 05/11/2025, 04/14, 04/05/2025, Additional history exists HEPATITIS C SCREENING Completed 09/17/2019 PNEUMOCOCCAL VACCINES (50+ years) Completed 06/05/2024, 09/04/2016, 06/07/2014, Additional history exists HEPATITIS A VACCINES Aged Out No long er eligible based on patient's age to complete this topic HIB VACCINES Aged Out No longer eligi ble based on patient's age to complete this topic IPV VACCINES Aged Out No longer eligi ble based on patient's age to complete this topic MENINGOCOCCAL VACCINES (ACWY) Aged Out No longer eligible based on patient's age to complete this topic MENINGOCOCCAL VACCINES (B) Aged Out N o longer eligible based on patient's age to complete this topic Medical Devices Not on file Procedures Procedure Name Priority Date/Time Associated Diagnosis Comments OUTSIDE LAB Routine 05/18/2025 11:04 AM EST BASIC METABOLIC PANEL (BMP) Routine 05/11/2025 8:36 AM EDT Essential hypertension CREATINE KINASE (CK) Routine 04/30/2025 8:47 AM EDT Elevated CPK BASIC METABOLIC PANEL (BMP) Routine 04/30/2025 8:47 AM EDT Essential hypertension URINALYSIS WITH REFLEX TO URINE CULTURE Routine 04/05/2025 9:24 AM EDT Gross hematuria COMPREHENSIVE METABOLIC PANEL (CMP) Routine 04/05/2025 9:06 AM EDT Gross hematuria Arteriosclerotic cardiovascular disease Dizziness Mixed hyperlipidemia CBC AND DIFFERENTIAL Routine 04/05/2025 9:06 AM EDT Arteriosclerotic cardiovascular disease Dizziness MAGNESIUM Routine 04/05/2025 9:06 AM EDT Dizziness TSH WITH REFLEX Routine 04/05/2025 9:06 AM EDT Dizziness Mixed hyperlipidemia HEMOGLOBIN A1C Routine 04/05/2025 9:06 AM EDT Impaired fasting blood sugar CREATINE KINASE (CK) Routine 04/05/2025 9:06 AM EDT Muscle spasm LIPID PANEL Routine 04/05/2025 9:06 AM EDT Mixed hyperlipidemia CT ABDOMEN/PELVIS Routine 04/05/2025 8:3 2 AM EDT Hematuria, undiagnosed cause HEPATITIS C ANTIBODY, QUALITATIVE Routine 09/17/2019 9:30 AM EST Need for hepatitis C screening test from Last 3 Months or Most Recently Relevant to Health Maintenance Results * Outside Lab (Non-MGB) (05/18/2025 11:04 AM EST) us Historical Provider LAB BLOOD BKR ORDERABLES Final Result * (ABNORMAL) Basic metabolic panel (05/11/2025 8:36 AM EDT) Only the most recent of2 resultswithin the time period is included. SODIUM 141 133 - 146 mmol/L [facility] CHLORIDE 101 96 - 108 mmol/L [facility] POTASSIUM 4.4 3.3 - 5.1 mmol/L [facility] CO2 28 21 - 35 mmol/L [facility] BUN 22(H) 6 - 19 mg/dL [facility] CREATININE 1.20 0.5 - 1.5 mg/dL [facility] GLUCOSE 113(H) 70 - 99 mg/dL [facility] CALCIUM 9.1 8.4 - 10.3 mg/dL [facility] EGFR 63 >59 mL/min/1.7 3m2 [facility] Comment:Estimated glomerular filtration rate calculated using the CKD-EPI refit equation. ANION GAP 16 10 - 20 mmol/L [facility] Blood 05/11/2025 8:36 AM EDT 05/11/2025 8:38 AM EDT us Raymon Bateman MD LAB BLOOD BKR ORDERABLES Una l Result Performing Organization Address City/[facility]/ZIP Co de Phone Number [address] [address] * (ABNORMAL) CPK (creatine kinase) (04/30/2025 8:47 AM EDT) Only the most recent of2 resultswithin the time period is included. CREATINE KINASE 439(H) 35 - 232 U/L [facility] Blood 04/30/2025 8:47 AM EDT 04/30/2025 8:49 AM EDT us Raymon Bateman MD LAB BLOOD BKR ORDERABLES Una l Result Performing Organization Address [facility] Co de Phone Number [address] [address] * Urinalysis w/reflex Urine Culture (04/05/2025 9:24 AM EDT) COLOR Yellow Yellow [facility] CLARITY Clear [facility] GLUCOSE Negative Negative [facility] BILI Negative Negative [facility] KETONES Negative Negative [facility] SPECIFIC GRAVITY 1.020 1.005 - 1.030 [facility] BLOOD Negative Negative [facility] PH 6.0 5.0 - 8.0 [facility] Protein-UA Negative Negative [facility] NITRITE Negative Negative [facility] Leukocyte esterase, ur Negative Negative [facility] Urine (Urine) 04/05/2025 9:2 4 AM EDT 04/05/2025 9:41 AM EDT us Raymon Bateman MD LAB URINE ORDERABLES Final Re sult Performing Organization Address [facility]/ZIP Co de Phone Number [address] [address] * (ABNORMAL) Comprehensive metabolic panel (04/05/2025 9:06 AM EDT) SODIUM 139 133 - 146 mmol/L [facility] POTASSIUM 3.8 3.3 - 5.1 mmol/L [facility] CHLORIDE 98 96 - 108 mmol/L [facility] CO2 28 21 - 35 mmol/L [facility] BUN 25(H) 6 - 19 mg/dL [facility] CREATININE 1.00 0.5 - 1.5 mg/dL [facility] GLUCOSE 113(H) 70 - 99 mg/dL [facility] ALBUMIN 4.5 3.9 - 4.8 g/dL [facility] TOTAL PROTEIN 7.3 6.5 - 8.0 g/dL [facility] CALCIUM 9.3 8.4 - 10.3 mg/dL [facility] ALKALINE PHOSPHATASE 51 39 - 117 U/L [facility] TOTAL BILIRUBIN 0.6 0.0 - 1.2 mg/dL [facility] AST 41(H) 0 - 37 U/L [facility] ALT 31 0 - 40 U/L [facility] GLOBULIN 2.8 1 - 4.8 g/dL [facility] EGFR 78 >59 mL/min/1.7 3m2 [facility] Comment:Estimated glomerular filtration rate calculated using the CKD-EPI refit equation. ANION GAP 17 10 - 20 mmol/L [facility] Blood 04/05/2025 9:06 AM EDT 04/05/2025 9:09 AM EDT us Raymon Bateman MD LAB BLOOD BKR ORDERABLES Una l Result [address] [address] * TSH with reflex (04/05/2025 9:06 AM EDT) TSH 1.29 0.27 - 4.20 uIU/mL [facility] Blood 04/05/2025 9:06 AM EDT 04/05/2025 9:09 AM EDT us Raymon Bateman MD LAB BLOOD BKR ORDERABLES Una l Result [facility] [address] [place] [address] * CBC and differential (04/05/2025 9:06 AM EDT) WBC 6.23 4.00 - 11.00 K/uL [facility] RBC 4.86 4.50 - 5.90 M/uL [facility] HGB 14.4 13.5 - 17.5 g/dL [facility] HCT 43.2 41.0 - 53.0 % [facility] PLT 244 150 - 450 K/uL [facility] MCV 88.9 80.0 - 100.0 fL [facility] MCH 29.6 27.0 - 31.0 pg [facility] MCHC 33.3 32.0 - 36.0 g/dL [facility] RDW 13.8 11.5 - 14.5 % [facility] MPV 10.6 8.4 - 12.0 fL [facility] NRBC 0.00 0.00 /100 WBCs [facility] ABSOLUTE NRBC 0.00 0.00 K/uL [facility] DIFF METHOD Auto [facility] NEUTS 50.9 48.0 - 76.0 % [facility] LYMPHS 38.0 18.0 - 41.0 % [facility] MONOS 9.0 4.0 - 11.0 % [facility] EOS 1.0 0.0 - 5.0 % [facility] BASOS 0.8 0.0 - 1.5 % [facility] Granulocytes, immature (%) 0.3 0.0 - 0.9 % [facility] ABSOLUTE NEUTS 3.17 1.92 - 7.60 K/uL [facility] ABSOLUTE LYMPHS 2.37 0.72 - 4.10 K/uL [facility] ABSOLUTE MONOS 0.56 0.16 - 1.10 K/uL [facility] ABSOLUTE EOS 0.06 0.00 - 0.50 K/uL [facility] ABSOLUTE BASOS 0.05 0.00 - 0.15 K/uL [facility] Granulocytes, immature 0.02 0.00 - 0.09 K/uL [facility] Blood 04/05/2025 9:06 AM EDT 04/05/2025 9:09 AM EDT Raymon Bateman MD LAB BLOOD BKR ORDERABLES Una l Result Performing Organization Address City/[facility]/ZIP Co de Phone Number [address] [address] * Magnesium (04/05/2025 9:06 AM EDT) MAGNESIUM 1.9 1.6 - 2.6 mg/dL [facility] Blood 04/05/2025 9:06 AM EDT 04/05/2025 9:09 AM EDT Raymon Bateman MD LAB BLOOD BKR ORDERABLES Una l Result Performing Organization Address [facility] Co de Phone Number [address] [address] * (ABNORMAL) Hemoglobin A1c (04/05/2025 9:06 AM EDT) HEMOGLOBIN A1C 5.9(H) 4.3 - 5.8 % [facility] Blood 04/05/2025 9:06 AM EDT 04/05/2025 9:08 AM EDT Raymon Bateman MD LAB BLOOD BKR ORDERABLES Una l Result Performing Organization Address [facility] Co de Phone Number [address] [address] * (ABNORMAL) Lipid panel (04/05/2025 9:06 AM EDT) HDL 39 mg/dL [facility] Comment: Interpretation <40 mg/dL: Low HDL cholesterol (major risk factor for CHD) Greater than or equal to 60 mg/dL: High HDL cholesterol ( negative risk factor for CHD) HDL - cholesterol is affected by a number of factors, e.g. smoking, excerise, hormones, sex and age. CHOLESTEROL 247(H) 0 - 240 mg/dL [facility] TRIGLYCERIDES 178(H) 30 - 160 mg/dL [facility] LDL 172(H) 50 - 129 mg/dL [facility] Comment: LDL levels in terms of risk for coronary heart disease: <100 mg/dL: Optimal 100-129 mg/dL: Near or above optimal 130-159 mg/dL: Borderline high 160-189 mg/dL: High >190 mg/dL: Very High CARDIAC RISK RATIO 6.3(H) 3.4 - 5.0 [facility] Blood 04/05/2025 9:06 AM EDT 04/05/2025 9:09 AM EDT Raymon Bateman MD LAB BLOOD BKR ORDERABLES Una l Result Performing Organization Address City/[facility]/ZIP Co de Phone Number [address] [address] * Hepatitis C antibody, qualitative (09/17/2019 9:30 AM EST) HCV NON-REACTIV E NON-REACTI VE [facility] Blood 09/17/2019 9:30 AM EST 09/17/2019 9:33 AM EST Raymon Bateman MD LAB BLOOD BKR ORDERABLES Una l Result Performing Organization Address City/[facility] Co de Phone Number [address] [address] from Last 3 Months or Most Recently Relevant to Health Maintenance Insurance [employer] MEDICARE PART A & B [employer] MEDICARE PART A & B Member Subscriber Plan / Payer (Ef fective 2009-Present) Name:Jimi Welch Member ID:[id number] Relation to Subscriber:Self Name:Jimi Welch Subscriber ID:[id number] Payer ID:[id number] Group ID:Not on file Type:Medicare Address: [place] [address] [employer] REPLAC[employer] MEDICARE PART A & B [employer]PLAC[employer] MEDICARE PART A & B [employer] MEDICARE PART A & B Member Subscriber Plan / Payer (Ef fective 2009-Present) Name:Jimi Welch Member ID:[id number] Relation to Subscriber:Self Name:Jimi Welch Subscriber ID:[id number] Payer ID:[id number] Group ID:Not on file Type:Medicare Address: [facility] [address] [employer] REPLAC[employer] MEDICARE PART A & B [employer] MEDICARE PART A & B [employer] RE[employer] MEDICARE PART A & B [employer] RE[employer]AC[employer] MEDICARE PART A & B Care Teams Net Application Architect Relationship Specialty Start Date End Date Raymon Bateman MD [address] [place] [id number] PCP - General 04/30/17 Stephen Fitzpatrick MD [address] [place] [phone] Ophthalmology 03/08/20 Binh Crawford MD [address] [place] [id number] Cardiology 11/02/20 Additional Source Comments The information contained in this document represents components of the legal health record. It is not the complete legal health record.[facility]
[2025-06-04] MEDS: iohexoL 350 MG/ML 100 ML INFUS..BTL 85 ML IV (08:49)
[2025-06-07 17:14] LABS: Creatinine POC 1.1 mg/dL (0.5-1.4); GFR POC > 60
== END 2025-06-04 07:53 | disposition home or self-care (01) ==
LOC: HO.CT 07:52
PROVIDERS: PCP Internal Medicine; Visit Provider Internal Medicine
DX: R31.9 Hematuria, unspecified (principal)
CPT/HCPCS: 74178; 82565; Q9967

== ENCOUNTER → 2025-06-04 07:54 | Outpatient (BNV) | payer MEDICARE, SELFPAY | PROVIDERS: PCP Internal Medicine; Visit Provider Radiology Diagnostic Radiology | DX: K57.90 Diverticulosis of intestine, part unspecified, without perforation or abscess without bleeding (principal); I25.10 Atherosclerotic heart disease of native coronary artery without angina pectoris; R16.0 Hepatomegaly, not elsewhere classified; M47.815 Spondylosis without myelopathy or radiculopathy, thoracolumbar region | CPT/HCPCS: 74178 ==